=== PATIENT | female | born 1990 | race African-American/Black ===

== ENCOUNTER 2017-03-05 20:05 | Emergency (ER) | payer OTHER ==
[~2017-03-05] VITALS: Ht 175.3 cm; Wt 140.6 kg
[~2017-03-05 20:05] MED LIST: ALBUTEROL2.5 MG/0.1; ALBUTEROL2.5 MG/31 IH; GENERESS FE CH1 EACH PO; GEODON20 MG PO; GLUCOPHAGE XR750 MG; HALDOL 0.5 MG0.5 MG PO; IBUPROFEN 800800 M1 PO; LATUDA40 MG PO; LEVAQUIN 500 M500 M2 PO; MEDROLDOSEPACK PO; NAPROSYN500 MG PO; NEURONTIN300 MG PO; NORCO 5-325 TA1 EACH PO; NORVASC10 MG PO; PHENERGAN 25 MG25 M1 PO; PREDNISONE 10 M10 M1 PO; PREDNISONE 20 M20 MG PO; PROAIR HFA8.5 GM IH; PROVENTIL; SEROQUEL 25 MG25 M1 PO; ULTRAM 50MG TAB50 MG PO; VENTOLIN HFA 1818 GM INH; ZPAK PO
[2017-03-05] MEDS ORDERED: SEROQUEL 50 MG50 MG PO (20:17)
[2017-03-05] MEDS ORDERED: ONDANSETRON HCL4 M2 PO (20:42)
[2017-03-05 21:17] VITALS: BP 114/70
== END 2017-03-05 21:19 | disposition home or self-care (01) ==
LOC: ER 20:05
DX: F41.9 Anxiety disorder, unspecified (principal); J45.909 Unspecified asthma, uncomplicated; I10 Essential (primary) hypertension; F17.210 Nicotine dependence, cigarettes, uncomplicated; Z88.8 Allergy status to other drugs, medicaments and biological substances